=== PATIENT | female | born 1960 | race African-American/Black ===

== ENCOUNTER 2021-05-22 08:07 | Emergency (ER) | payer OTHER ==
[~2021-05-22] VITALS: Ht 167.6 cm; Wt 86.8 kg
[2021-05-22 08:10] VITALS: TEMP 98.8
[2021-05-22 10:12] VITALS: BP 107/60; PULSE 86
== END 2021-05-22 10:12 | disposition home or self-care (01) ==
LOC: COL.ER 08:07
DX: U07.1 COVID-19 (principal); F32.A Depression, unspecified; Z79.899 Other long term (current) drug therapy